=== PATIENT | female | born 1960 | race Caucasian/White ===

== ENCOUNTER 2023-07-26 15:24 | Inpatient (IN) | payer BC ==
[~2023-07-26 15:24] MED LIST: Heparin 10,000 UNITS/ 10 ML VIAL ONE; Lidocaine 1% (PF) 30 ML VIAL ONE; SUGAMMADEX SODIUM 200 MG/2 ML VIAL ONE; fentaNYL PF 100 MCG/2 ML SYRINGE ONE
[2023-07-26] MEDS: Sodium Chloride 0.9% 1,000 ML IV SCH ×3 (18:12→18:29)
[2023-07-26] MEDS ORDERED: Aspirin 325 mg Enteric Coated Tablet PO SCH (18:15)
[2023-07-26 18:28] VITALS: BMI 29.8
[2023-07-26] MEDS ORDERED: Atorvastatin Calcium 40 MG TAB PO SCH (21:00)
[2023-07-27] MEDS ORDERED: Gabapentin 300 MG CAP PO SCH (01:15)
[2023-07-27] MEDS: HYDROcodone/Acetaminophen 10/325 mg Tablet PO PRN ×4 (01:31→20:19)
[2023-07-27] MEDS ORDERED: hydrALAZINE 20 MG/ML VIAL SLOW IVP PRN (04:29)
[2023-07-27] MEDS ORDERED: Clopidogrel Bisulfate 75 MG TAB PO SCH (04:30)
[2023-07-27 05:12] LABS: Cardiac Risk 3.2 (Less than 4.5)
[2023-07-27] MEDS: Sodium Chloride 0.9% 1,000 ML IV SCH ×2 (05:45→19:31)
[2023-07-27] MEDS: Levothyroxine Sodium 112 MCG TAB PO SCH (05:45)
[2023-07-27 06:28] LABS: Magnesium 1.6 mg/dL (1.6-2.6)
[2023-07-27] MEDS: Gabapentin 300 MG CAP PO SCH ×3 (08:35→20:19)
[2023-07-27] MEDS ORDERED: Aspirin Chewable 81 MG TAB PO SCH (09:00)
[2023-07-27] MEDS ORDERED: Aspirin 325 mg Enteric Coated Tablet PO SCH ×3 (09:00→15:15)
[2023-07-27] MEDS ORDERED: Ondansetron PF 4 MG/2 ML Vial IVP PRN (18:41)
[2023-07-27] MEDS ORDERED: Bisacodyl 5 MG TAB PO PRN (18:41)
[2023-07-27] MEDS ORDERED: Senokot S 8.6-50 MG TAB PO PRN (18:41)
[2023-07-27] MEDS ORDERED: Benzonatate 100 MG CAP PO PRN (18:41)
[2023-07-27] MEDS ORDERED: Benzocaine/Menthol 1 LOZ LOZ PO PRN (18:41)
[2023-07-27] MEDS ORDERED: Ondansetron ODT 4 MG TAB PO PRN (18:41)
[2023-07-27] MEDS ORDERED: Calcium Carbonate 500 MG ChewTAB PO PRN (18:41)
[2023-07-27] MEDS ORDERED: Moisturizing Cream (Eucerin) 113 GM JAR TOP PRN (18:41)
[2023-07-27] MEDS ORDERED: Loratadine 10 MG TAB PO PRN (18:41)
[2023-07-27] MEDS ORDERED: Sodium Chloride 0.65% Nasal 44 ML BOT EA NARE PRN (18:41)
[2023-07-27] MEDS ORDERED: Loperamide HCl 2 MG CAP PO PRN ×2 (18:41)
[2023-07-27] MEDS ORDERED: Artificial Tear Sol 15 ML BOT EA EYE PRN (18:41)
[2023-07-27] MEDS ORDERED: Glucagon 1 MG/ML KIT IM PRN (18:42)
[2023-07-27] MEDS ORDERED: HumaLOG 300 UNITS/3 ML VIAL SC PRN (18:42)
[2023-07-27] MEDS ORDERED: Dextrose 5% in Water 1,000 ML IV PRN (18:42)
[2023-07-27] MEDS ORDERED: Dextrose 50% Abboject 50 ML SYRINGE SLOW IVP PRN (18:42)
[2023-07-27] MEDS: Acetaminophen 500 MG TAB PO PRN (19:31)
[2023-07-27] MEDS: buPROPion 75 MG TAB PO SCH (20:19)
[2023-07-27] MEDS: Doxepin HCl 10 MG CAP PO PRN (20:19)
[2023-07-27] MEDS ORDERED: Atorvastatin Calcium 40 MG TAB PO SCH (21:00)
[2023-07-28] MEDS: Levothyroxine Sodium 112 MCG TAB PO SCH (05:32)
[2023-07-28] MEDS: Sodium Chloride 0.9% 1,000 ML IV SCH (05:32)
[2023-07-28] MEDS: HYDROcodone/Acetaminophen 10/325 mg Tablet PO PRN ×4 (05:57→22:37)
[2023-07-28] MEDS: Gabapentin 300 MG CAP PO SCH ×3 (09:10→20:10)
[2023-07-28] MEDS: Aspirin Chewable 81 MG TAB PO SCH (09:10)
[2023-07-28] MEDS: buPROPion 75 MG TAB PO SCH ×2 (09:11→20:11)
[2023-07-28] MEDS: Clopidogrel Bisulfate 75 MG TAB PO SCH (09:11)
[2023-07-28 09:12] LABS: Hemoglobin A1c 5.8 % (4.0-6.0)
[2023-07-28] MEDS ORDERED: Losartan 25 MG TAB PO SCH (13:00)
[2023-07-28 13:05] LABS: Anion Gap 15 mmol/L (10-20); BUN (Urea Nitrogen) 7 mg/dL (9.8-20.1); Calc. Creatinine Clearance 79 mL/min (70-130); Carbon Dioxide 24 mmol/L (23-31); Chloride 103 mmol/L (98-107); Estimated GFR 72; Glucose 90 mg/dL (80-115); Potassium 3.3 mmol/L (3.5-5.1); Sodium 139 mmol/L (136-145)
[2023-07-28] MEDS: Atorvastatin Calcium 40 MG TAB PO SCH (20:08)
[2023-07-28] MEDS: Enoxaparin 40 MG (0.4 mL) SYRINGE SC SCH (20:11)
[2023-07-28] MEDS: Acetaminophen 500 MG TAB PO PRN (20:20)
[2023-07-28] MEDS ORDERED: Famotidine 20 MG TAB PO SCH (21:00)
[2023-07-28] MEDS: Doxepin HCl 10 MG CAP PO PRN (22:48)
[2023-07-29] MEDS: HYDROcodone/Acetaminophen 10/325 mg Tablet PO PRN ×4 (03:57→18:33)
[2023-07-29 05:13] LABS: Anion Gap 14 mmol/L (10-20); BUN (Urea Nitrogen) 8 mg/dL (9.8-20.1); Calc. Creatinine Clearance 83 mL/min (70-130); Calcium 9.4 mg/dL (7.8-10.44); Carbon Dioxide 25 mmol/L (23-31); Chloride 104 mmol/L (98-107); Estimated GFR 77; Glucose 85 mg/dL (80-115); Potassium 3.1 mmol/L (3.5-5.1); Sodium 140 mmol/L (136-145)
[2023-07-29] MEDS: Levothyroxine Sodium 112 MCG TAB PO SCH (05:21)
[2023-07-29] MEDS: Acetaminophen 500 MG TAB PO PRN ×2 (05:21→20:52)
[2023-07-29] MEDS ORDERED: Potassium Chloride 20 MEQ TAB PO SCH (06:45)
[2023-07-29] MEDS ORDERED: Potassium Bicarbonate/Cit Ac 20 MEQ TAB PO SCH (06:45)
[2023-07-29] MEDS: Losartan 25 MG TAB PO SCH (08:05)
[2023-07-29] MEDS: Clopidogrel Bisulfate 75 MG TAB PO SCH (08:06)
[2023-07-29] MEDS: Gabapentin 300 MG CAP PO SCH ×3 (08:06→20:52)
[2023-07-29] MEDS: Aspirin Chewable 81 MG TAB PO SCH (08:06)
[2023-07-29] MEDS: buPROPion 75 MG TAB PO SCH ×2 (08:44→20:51)
[2023-07-29] MEDS ORDERED: Losartan 25 MG TAB PO SCH (09:00)
[2023-07-29] MEDS ORDERED: Labetalol HCl 100 MG/20 ML VIAL SLOW IVP PRN (09:15)
[2023-07-29] MEDS ORDERED: hydrALAZINE 20 MG/ML VIAL SLOW IVP PRN (09:16)
[2023-07-29] MEDS ORDERED: Lorazepam 1 MG TAB PO PRN (09:16)
[2023-07-29] MEDS ORDERED: Lorazepam 1 MG TAB PO SCH ×2 (09:30→21:00)
[2023-07-29 09:37] LABS: Hematocrit 43.8 % (36.0-47.0); Hemoglobin 14.9 g/dL (12.0-16.0); Platelet Count 255 10x3/uL (130-400)
[2023-07-29] MEDS ORDERED: Electrolyte Replacement Protocol 1 EACH FS SCH (10:30)
[2023-07-29] MEDS ORDERED: Electrolyte Replacement Protocol FS PRN (10:45)
[2023-07-29 12:37] LABS: Potassium 3.8 mmol/L (3.5-5.1)
[2023-07-29] MEDS: hydrALAZINE 25 MG TAB PO SCH ×2 (15:31→20:51)
[2023-07-29] MEDS: Enoxaparin 40 MG (0.4 mL) SYRINGE SC SCH (20:50)
[2023-07-29] MEDS: Atorvastatin Calcium 40 MG TAB PO SCH (20:51)
[2023-07-30] MEDS: HYDROcodone/Acetaminophen 10/325 mg Tablet PO PRN ×2 (04:10→08:19)
[2023-07-30 04:47] LABS: Anion Gap 14 mmol/L (10-20); BUN (Urea Nitrogen) 8 mg/dL (9.8-20.1); Calc. Creatinine Clearance 80 mL/min (70-130); Calcium 9.5 mg/dL (7.8-10.44); Carbon Dioxide 25 mmol/L (23-31); Chloride 105 mmol/L (98-107); Estimated GFR 74; Glucose 94 mg/dL (80-115); Potassium 3.4 mmol/L (3.5-5.1); Sodium 141 mmol/L (136-145)
[2023-07-30 05:07] LABS: Free T4 (Free Thyroxine) 1.27 ng/dL (0.70-1.48)
[2023-07-30] MEDS ORDERED: Levothyroxine Sodium 100 MCG TAB PO SCH (06:00)
[2023-07-30] MEDS ORDERED: Potassium Chloride 20 MEQ TAB PO SCH ×2 (08:00→08:30)
[2023-07-30] MEDS: buPROPion 75 MG TAB PO SCH (08:06)
[2023-07-30] MEDS: Clopidogrel Bisulfate 75 MG TAB PO SCH (08:07)
[2023-07-30] MEDS: Aspirin Chewable 81 MG TAB PO SCH (08:07)
[2023-07-30] MEDS: Losartan 25 MG TAB PO SCH (08:07)
[2023-07-30] MEDS: Gabapentin 300 MG CAP PO SCH (08:07)
[2023-07-30] MEDS: hydrALAZINE 25 MG TAB PO SCH (08:07)
[2023-07-30 11:42] VITALS: BP 95/68; TEMP 98.4
== END 2023-07-30 14:50 | disposition home or self-care (01) | DRG 66 ==
LOC: ERS 15:24 → SDC 15:43 → 2NO 17:19 → UNDOADMIN 17:19 → SDC 17:19 → 2NO 17:20 → 2SE 07-28 16:17 → 2NO 07-28 16:17 → 2SW 07-28 16:17 → UNDODISIN 07-30 14:50
PROVIDERS: ADMIT Psychiatry & Neurology Neurology; ATTEND Psychiatry & Neurology Neurology
DX: I63.9 Cerebral infarction, unspecified (principal); D72.829 Elevated white blood cell count, unspecified; I10 Essential (primary) hypertension; E03.9 Hypothyroidism, unspecified; I65.29 Occlusion and stenosis of unspecified carotid artery; E06.3 Autoimmune thyroiditis; M54.50 Low back pain, unspecified; G89.29 Other chronic pain; Z79.82 Long term (current) use of aspirin; Z79.890 Hormone replacement therapy; Z79.899 Other long term (current) drug therapy
CPT/HCPCS: 36415; 36416; 70450; 70551; 80048; 80061; 83036; 83735; 84439; 84443; 84481; 85014; 85018; 85049; 93005; 93010; 93306; 93880; J1644; J1650; J2001; J2405; J7050